=== PATIENT | female | born 1955 | race Caucasian/White ===

== ENCOUNTER → 2021-11-14 | Outpatient (CLI) | payer MEDICARE ==
[2021-11-14 16:55] LABS: BASOPHILS ABSOLUTE AUTO 0.08 K/mm3 (0.00-0.23); BASOPHILS PERCENT AUTO 1 % (0-2); EOSINOPHILS ABSOLUTE AUTO 0.15 K/mm3 (0.00-0.68); EOSINOPHILS PERCENT AUTO 1 % (0-6); Hematocrit 41.8 % (33.0-51.0); Hemoglobin 13.8 g/dL (11.5-16.0); IMMATURE GRAN ABSOLUTE AUTO 0.02 K/mm3 (0.00-0.10); IMMATURE GRAN PERCENT AUTO 0 % (0-1); LYMPHOCYTES PERCENT AUTO 37 % (21-46); MONOCYTES ABSOLUTE AUTO 0.43 K/mm3 (0.16-1.47); MONOCYTES PERCENT AUTO 4 % (4-13); Mean Corpuscular HGB 29.7 pg (26.0-34.0); Mean Corpuscular Volume 90 fL (80-100); Mean Platelet Volume 10.2 fL (9.1-12.4); NEUTROPHILS ABSOLUTE AUTO 5.87 K/mm3 (1.96-9.15); NEUTROPHILS PERCENT AUTO 56 % (41-73); Platelet Count 327 K/mm3 (150-400); RDW Coefficient Variation 12.3 % (11.7-14.2); RDW Standard Deviation 40.3 fL (35.1-46.3); Red Blood Cell Count 4.65 M/mm3 (3.80-5.20); White Blood Cell Count 10.45 K/mm3 (4.00-11.30)
[2021-11-14 17:08] LABS: Alanine Aminotransfer (ALT/SGP 34 U/L (12-78); Albumin, Blood 4.2 g/dL (3.4-5.0); Albumin/Globulin Ratio 1.1 (0.8-1.8); Alk Phos 108 U/L (50-136); Anion Gap 9 mmol/L (6-16); Aspartate Aminotrans (AST/SGOT 15 U/L (12-37); Bilirubin, Total 0.4 mg/dL (0.1-1.0); Blood Urea Nitrogen 19 mg/dL (8-24); Bun/Creatinine Ratio 26.5 (12.0-20.0); CO2, Blood 29 mmol/L (21-32); Calcium, Blood 9.4 mg/dL (8.5-10.1); Chloride, Blood 100 mmol/L (98-108); Creatinine, Blood 0.72 mg/dL (0.40-1.00); Globulin, Blood 3.8 g/dL (2.2-4.0); Glomerular Filtration Rate >60 (60-); Glucose, Blood 222 mg/dL (70-99); Potassium, Blood 3.4 mmol/L (3.5-5.5); Sodium, Blood 138 mmol/L (136-145)
[2021-11-14 20:22] LABS: Cholesterol 301 mg/dL (50-200); HDL Cholesterol 43 mg/dL (>39); LDL/HDL RATIO Unable to Calculate; Low Density Lipoprotein Chol Unable to Calculate mg/dL (0-110); Triglycerides 457 mg/dL (30-160); Very Low Density Lipoprot Chol Unable to Calculate mg/dL (6-32)
== END ==
LOC: LAB 10:30 → LAB SHORT 10:30
PROVIDERS: Nurse Practitioner Family
DX: I10 Essential (primary) hypertension (principal); N39.0 Urinary tract infection, site not specified; M54.51 Vertebrogenic low back pain; E78.2 Mixed hyperlipidemia; R73.01 Impaired fasting glucose
CPT/HCPCS: 80053; 80061; 83036; 84443; 85025; 87086

== ENCOUNTER → 2022-07-30 | Outpatient (CLI) | payer MEDICARE | END | disposition home or self-care (01) | LOC: LAB SHORT 15:30 | DX: R30.0 Dysuria (principal) | CPT/HCPCS: 87077; 87086; 87147; 87186 ==

== ENCOUNTER → 2024-08-12 | Outpatient (CLI) | payer MEDICARE ==
[2024-08-12 16:08] LABS: Free Thyroxine 0.64 ng/dL (0.70-1.60)
[2024-08-12 16:10] LABS: Thyroid Stimulating Hormone 41.7 uIU/mL (0.360-4.800)
== END | disposition home or self-care (01) ==
LOC: LAB SHORT 14:51 → LAB 14:51
PROVIDERS: Nurse Practitioner Family
DX: E03.9 Hypothyroidism, unspecified (principal)
CPT/HCPCS: 84439; 84443; 86376

== ENCOUNTER → 2024-11-28 | Outpatient (CLI) | payer MEDICARE ==
[~2024-11-28] MED LIST: ALBU90OI INH; ATOR20 PO; CYMBALTA20 M1 PO; LEVSOD25 PO; METF500 PO; OMEGA-3 FISH O1 EAC6 PO; OMEP20ER PO; POTCHL20ER PO; Prozac20 MG PO; VITAMIN D5000 UNIT PO
[2024-11-29 11:14] LABS: Free Thyroxine 0.72 ng/dL (0.70-1.60); Thyroid Stimulating Hormone 23.5 uIU/mL (0.360-4.800)
== END ==
LOC: LAB 15:01 → LAB SHORT 15:01
PROVIDERS: Nurse Practitioner Family
DX: E03.9 Hypothyroidism, unspecified (principal)
CPT/HCPCS: 84439; 84443

== ENCOUNTER 2024-12-12 08:24 | Day surgery (SDC) | payer MEDICARE ==
[~2024-12-12] VITALS: Ht 162.6 cm; Wt 64.5 kg
[2024-12-12] VITALS (11 sets, daily range): BP systolic 110–152; BP diastolic 64–85
[~2024-12-12 08:24] MED LIST changes: +Bupivacaine 0.5% Inj 10 ML Vial ONE
[2024-12-12] MEDS ORDERED: Bupivacaine 0.5% Inj 10 ML Vial ONE (08:25)
[2024-12-12] MEDS ORDERED: Bupivacaine 0.5% HCl 5 MG/ML 30MLVIAL ONE (08:30)
[2024-12-12] MEDS ORDERED: CeFAZolin Sodium 2,000 MG in NS 100 ML IV SCH (08:45)
[2024-12-12] MEDS ORDERED: Lactated Ringer's 1,000 ML IV SCH (08:45)
[2024-12-12] MEDS ORDERED: CeFAZolin Sodium 2,000 MG VIAL ONE (08:52)
--- NOTE | 2024-12-12 09:12 | NUR ---
History, Chart, Medications and Allergies reviewed before start of procedure. Patient confirms NPO status and agrees with scheduled surgery. Patient accompanied by friend named Ashley, who will be ride home per patient. Friend took jewelry from patient for safe keeping during surgery.
[2024-12-12] MEDS ORDERED: Dexamethasone Sod Phos 10 MG/ML 1ML VIAL ONE (09:25)
[2024-12-12] MEDS ORDERED: propofoL 20 ML IV ONE (09:25)
[2024-12-12] MEDS ORDERED: Famotidine 10 MG/ML 2ML Vial IV ONE (09:25)
[2024-12-12] MEDS ORDERED: Ondansetron HCl 2 MG / ML 2ML Vial ONE (09:25)
[2024-12-12] MEDS ORDERED: FentaNYL Citrate 50 MCG/ML 2 ML Injection ONE (09:25)
[2024-12-12] MEDS ORDERED: Ketorolac Tromethamine 30mg Vial ONE (09:26)
[2024-12-12] MEDS ORDERED: FentaNYL Citrate 50 MCG/ML 2 ML Injection IV PRN (09:40)
[2024-12-12] MEDS ORDERED: Prochlorperazine Edisylate 10 mg Vial IV PRN (09:40)
[2024-12-12] MEDS ORDERED: HYDROmorphone HCl/Pf 1MG SYR IV PRN (09:40)
[2024-12-12] MEDS ORDERED: Albuterol 2.5 MG/3 ML VIAL INH PRN (09:40)
[2024-12-12] MEDS ORDERED: ePHEDrine Sulfate 50 MG/ML 1ML Injection ONE (10:04)
[2024-12-12] MEDS ORDERED: Rocuronium Bromide 10 MG/ML 5ML Injection IV ONE ×2 (10:05→10:58)
[2024-12-12] MEDS ORDERED: Phenylephrine HCl 100 MCG/ML-NS 10MLSYR (1MG/10ML) ONE (10:11)
[2024-12-12] MEDS ORDERED: Methylene Blue 1% 100 MG/10 ML VIAL ONE (10:45)
[2024-12-12] MEDS ORDERED: Sugammadex Sodium 200 MG/2ML SDV (100 MG/ML) ONE (11:25)
[2024-12-12] MEDS ORDERED: HYDROcodone 5-APAP 325 TAB PO PRN (12:00)
[2024-12-12] MEDS ORDERED: Potassium Chloride 20 MEQ TabCR PO ONE (12:00)
[2024-12-12] MEDS ORDERED: HYDROmorphone HCl/Pf 1MG SYR ONE (12:10)
--- NOTE | 2024-12-12 13:25 | NUR ---
Patient up to Ambulate independently. Gait steady. Discharge instructions reviewed with patient. Patient verbalizes understanding. Copy given to patient to take home, [facility]. Patient States Post-Procedure ride home has been arranged. Discharged via wheelchair to private car for ride home. PT REPORTS READY TO GO HOME. DRESSING C/D/I. BREAST BINDER IN PLACE. PT HAD SNACK BEFORE HAVING PAIN MED AND POTASSIUM. PT DENIES N/V.
== END 2024-12-12 13:25 | disposition home or self-care (01) ==
LOC: ORSCMMR 08:24 → NM 08:24 → ORSCMMR 08:25 → NM 08:30
PROVIDERS: Surgery
PROC: 07B50ZX Excision of Right Axillary Lymphatic, Open Approach, Diagnostic (ICD-10-PCS; principal; 2024-12-12 09:00)
PROC: 0HBT0ZZ Excision of Right Breast, Open Approach (ICD-10-PCS; principal; 2024-12-12 09:00)
DX: C50.411 Malignant neoplasm of upper-outer quadrant of right female breast (principal); C77.3 Secondary and unspecified malignant neoplasm of axilla and upper limb lymph nodes; Z17.0 Estrogen receptor positive status [ER+]; Z17.21 Progesterone receptor positive status; Z17.32 Human epidermal growth factor receptor 2 negative status; I10 Essential (primary) hypertension; J44.9 Chronic obstructive pulmonary disease, unspecified; G47.33 Obstructive sleep apnea (adult) (pediatric); K21.9 Gastro-esophageal reflux disease without esophagitis; E11.9 Type 2 diabetes mellitus without complications; E03.9 Hypothyroidism, unspecified; F17.210 Nicotine dependence, cigarettes, uncomplicated; Z79.84 Long term (current) use of oral hypoglycemic drugs; Z79.899 Other long term (current) drug therapy
CPT/HCPCS: 38792; 82947; 88307; 88342; A9270; A9520; J0690; J1100; J1171; J1885; J2371; J2405; J2704; J3010; J7120; Q9968

== ENCOUNTER → 2025-01-09 | Outpatient (CLI) | payer MEDICARE ==
[~2025-01-09] MED LIST changes: -Bupivacaine 0.5% Inj 10 ML Vial ONE
[2025-01-09 19:55] LABS: Free Thyroxine 1.01 ng/dL (0.70-1.60)
== END ==
LOC: LAB SHORT 17:23 → LAB 17:23
PROVIDERS: Nurse Practitioner Family
DX: E03.9 Hypothyroidism, unspecified (principal)
CPT/HCPCS: 84439; 84443

== ENCOUNTER 2025-02-23 11:34 | Day surgery (SDC) | payer MEDICARE ==
[~2025-02-23] VITALS: Ht 162.6 cm; Wt 66.3 kg
[~2025-02-23 11:34] MED LIST changes: +Balanced Salt Epinephrine Irrigation Solution 500 mL IR SCH; +IPRAT-ALBUT 0.5-3 ML; +LOSA25; +Lidocaine HCl/Pf 1% 5 ML VIAL XX SCH; +Moxifloxacin HCL 0.5 MG/0.1 ML 0.4MLSYR RIGHTEYE SCH; +NS 500 ML IV ONE; +PHENYLEPHRINE\\TROPICAMIDE\\TETRACAINE OPHTHALMIC DILATING SOLN RIGHTEYE PRN; +Povidone-Iodine 450 DROP/30 ML Solution ONE; +Povidone-Iodine 450 DROP/30 ML Solution RIGHTEYE SCH; +Prozac20 MG; +Tetracaine HCl/Pf 0.5% Opth Soln 4 ml ONE; +Triamcinolone Inj Susp 40 MG / ML 1ML Vial INJ SCH; +Triamcinolone Inj Susp 40 MG / ML 1ML Vial ONE
[2025-02-23] MEDS ORDERED: NS 500 ML IV ONE (12:38)
[2025-02-23] MEDS ORDERED: VITAMIN D3400 UNI1 PO (12:42)
[2025-02-23] MEDS ORDERED: Midazolam HCl 1MG / ML 2ML Vial ONE (13:27)
[2025-02-23] MEDS ORDERED: FentaNYL Citrate 50 MCG/ML 2 ML Injection ONE (13:27)
--- NOTE | 2025-02-23 13:58 | NUR ---
02/23/25 Rea Pisano PT SNORING, BUT AROUSABLE UPON ARRIVAL TO STEPDOWN.
[2025-02-23 14:35] VITALS: BP 132/82
== END 2025-02-23 14:27 | disposition home or self-care (01) ==
LOC: ORSCSDS 11:34
PROVIDERS: Ophthalmology
PROC: 08RJ3JZ Replacement of Right Lens with Synthetic Substitute, Percutaneous Approach (ICD-10-PCS; principal; 2025-02-23 13:30)
DX: E11.36 Type 2 diabetes mellitus with diabetic cataract (principal); H25.811 Combined forms of age-related cataract, right eye; Z96.1 Presence of intraocular lens; F32.A Depression, unspecified; I10 Essential (primary) hypertension; E78.2 Mixed hyperlipidemia; J44.9 Chronic obstructive pulmonary disease, unspecified; E03.9 Hypothyroidism, unspecified; K21.9 Gastro-esophageal reflux disease without esophagitis; Z79.84 Long term (current) use of oral hypoglycemic drugs; Z79.899 Other long term (current) drug therapy
CPT/HCPCS: 82947; J2250; J3010; J3301; J7040; V2632

== ENCOUNTER → 2025-03-20 | Outpatient (CLI) | payer MEDICARE ==
[~2025-03-20] MED LIST changes: -Balanced Salt Epinephrine Irrigation Solution 500 mL IR SCH; -Lidocaine HCl/Pf 1% 5 ML VIAL XX SCH; -Moxifloxacin HCL 0.5 MG/0.1 ML 0.4MLSYR RIGHTEYE SCH; -NS 500 ML IV ONE; -PHENYLEPHRINE\\TROPICAMIDE\\TETRACAINE OPHTHALMIC DILATING SOLN RIGHTEYE PRN; -Povidone-Iodine 450 DROP/30 ML Solution ONE; -Povidone-Iodine 450 DROP/30 ML Solution RIGHTEYE SCH; -Tetracaine HCl/Pf 0.5% Opth Soln 4 ml ONE; -Triamcinolone Inj Susp 40 MG / ML 1ML Vial INJ SCH; -Triamcinolone Inj Susp 40 MG / ML 1ML Vial ONE; +VITAMIN D3400 UNI1 PO
[2025-03-20 19:22] LABS: Thyroid Stimulating Hormone 47.2 uIU/mL (0.360-4.800)
== END ==
LOC: LAB 16:28 → LAB SHORT 16:28
PROVIDERS: Nurse Practitioner Family
DX: E03.9 Hypothyroidism, unspecified (principal)
CPT/HCPCS: 84439; 84443